=== PATIENT | female | born 1980 | race African-American/Black ===

== ENCOUNTER 2023-02-15 09:51 | Emergency (ER) | payer OTHER ==
[~2023-02-15] VITALS: Ht 165.1 cm; Wt 86.4 kg
[~2023-02-15 09:51] MED LIST: ASPI81TA53 PO; ATOR20TA66 PO; CARV6.253 PO; CLOP75TA34 PO; LISI20TA28 PO; NOR5T PO; PANT40TA54 PO
[2023-02-15 10:32] LABS: APTT 22 SECONDS (22-32); PROTHROMBIN TIME 10.5 SECONDS (9.0-12.0)
[2023-02-15 10:40] LABS: ALANINE AMINOTRANSFERASE 19 U/L (12-78); ALBUMIN 4.6 G/DL (3.4-5.0); ALBUMIN/GLOBULIN RATIO 0.9 (1.1-1.5); ALKALINE PHOSPHATASE 66 IU/L (46-116); ANION GAP 14 (8-16); BILIRUBIN,TOTAL 0.8 MG/DL (0.1-1.0); BLOOD UREA NITROGEN 18 MG/DL (7-18); BUN/CREATININE RATIO 17.3 (10.0-20.0); CALCIUM 9.9 MG/DL (8.5-10.1); CHLORIDE 100 MMOL/L (99-107); CREATININE 1.04 MG/DL (0.40-0.90); GLUCOSE 129 MG/DL (70-104); SODIUM 134 MMOL/L (135-145); TOTAL CARBON DIOXIDE 19.6 MMOL/L (24-32); TOTAL PROTEIN 9.5 G/DL (6.4-8.2); eCRCL 62 ML/MIN; eGFR 70 ML/MIN
[2023-02-15] MEDS: niCARDipine-NS 40mg/200ml IVPB 200 ML IV SCH ×3 (10:40→16:31)
[2023-02-15 10:49] LABS: PRO BRAIN NATRIURETIC PEPTIDE 1073 PG/ML (0-125)
[2023-02-15 10:50] LABS: ASPARTATE AMINO TRANSFERASE 36 U/L (10-37); POTASSIUM 3.5 MMOL/L (3.5-5.1)
[2023-02-15] MEDS ORDERED: labetalol 20mg/4ml (5mg/ml) syringe IV ONE ×2 (10:55→11:50)
[2023-02-15 11:11] LABS: BASOPHILS # (AUTO) 0.1 X10'3 (0-0.2); EOSINOPHILS # (AUTO) 0.2 X10'3 (0-0.9); EOSINOPHILS % (AUTO) 1.6 % (0-6); HEMATOCRIT 43.8 % (35.0-45.0); HEMOGLOBIN 14.5 g/dl (12.0-16.0); LYMPHOCYTES # (AUTO) 2.7 X10'3 (1.1-4.8); LYMPHOCYTES % (AUTO) 23.8 % (21-51); MEAN CORPUSCULAR HEMOGLOBIN 29.2 PG (27.0-31.0); MEAN CORPUSCULAR HGB CONC 33.2 g/dL (33.0-36.5); MEAN CORPUSCULAR VOLUME 87.8 FL (78-98); MEAN PLATELET VOLUME 9.1 FL (7.4-10.4); MONOCYTES # (AUTO) 0.7 X10'3 (0-0.9); MONOCYTES % (AUTO) 6.4 % (2-12); NEUTROPHILS # (AUTO) 7.7 X10'3 (1.8-7.7); NEUTROPHILS % (AUTO) 67.2 % (42-75); PLATELET COUNT 314 X10'3 (140-440); RED BLOOD COUNT 4.99 X10'6 (4.20-5.60); RED CELL DISTRIBUTION WIDTH 14.4 % (11.5-14.5); WHITE BLOOD COUNT 11.4 X10'3 (4.5-11.0)
[2023-02-15] MEDS ORDERED: iohexol 350MG/ML 100ml bottle IV ONE (12:16)
--- NOTE | 2023-02-15 12:55 | NUR ---
Pt. to CT and bacl tp room with RN and transportation mechanic. stable.
--- NOTE | 2023-02-15 16:01 | NUR ---
SPOKE WITH FELIPA DHILLON: PATIENTS CONTINUED ELEVATED BP (SYS -180'S) AND HR. (1OO-120) STATED HE IS GOING TO CHANGE THE IV MEDS PT. IS CURRENTLY ON.
--- NOTE | 2023-02-15 16:50 | NUR ---
Dr. Whelan made aware of current BP, 156/81 HR 103, no changes in IV meds at this time.
[2023-02-15] MEDS ORDERED: NORMAL SALINE IV ONE (17:25)
[2023-02-15] MEDS ORDERED: DESMOPRESSIN IV ONE (17:25)
--- NOTE | 2023-02-15 18:43 | NUR ---
Attempted to call report to Michelle Lowe @ [phone], was informed nurse not available making bed changes.
--- NOTE | 2023-02-15 18:57 | NUR ---
Report called to Arlet RN at [facility]. Informed of abnormal labs, drips, vs, activity, etc.Questions answered as requested.
[2023-02-15] MEDS ORDERED: morphine 4 MG/ML inj SYRINge IV STA (19:20)
[2023-02-15] MEDS ORDERED: labetalol 20mg/4ml (5mg/ml) syringe IV STA (19:20)
[2023-02-15 23:50] VITALS: BP 174/98; PULSE 110; RESP 16; TEMP 98.9; O2SAT 95
== END 2023-02-16 00:05 | disposition short-term general hospital (02) ==
LOC: ER 09:51
DX: I61.9 Nontraumatic intracerebral hemorrhage, unspecified (principal); I16.9 Hypertensive crisis, unspecified; I10 Essential (primary) hypertension; Z79.899 Other long term (current) drug therapy; Z79.82 Long term (current) use of aspirin
CPT/HCPCS: 36415; 70450; 70496; 71045; 80053; 83880; 84484; 85025; 85610; 85730; 93005; 96365; 96366; 96375; 96376; 99291; J2270; J2597; J3490; Q9967